=== PATIENT | male | born 1945 | race Caucasian/White ===

== ENCOUNTER → 2023-01-27 | Outpatient (REF) ==
[2023-01-27 12:47] LABS: HEMATOCRIT 35.6 % (42.0-52.0); MEAN CORPUSCULAR HEMOGLOBIN 24.8 pg (27.0-33.0); MEAN CORPUSCULAR HGB CONC 30.9 g/dl (32.0-36.5); MEAN CORPUSCULAR VOLUME 80.2 fl (80.0-96.0); PLATELET COUNT, AUTOMATED 229 10^3/uL (150-450); RED BLOOD COUNT 4.44 10^6/uL (4.30-6.10); WHITE BLOOD COUNT 10.4 10^3/uL (4.0-10.0)
[2023-01-27 13:36] LABS: HEMOGLOBIN A1c 7.3 % (4.0-6.0)
[2023-01-27 13:59] LABS: BLOOD UREA NITROGEN 23 MG/DL (9-23); CALCIUM LEVEL 8.7 MG/DL (8.3-10.6); CARBON DIOXIDE LEVEL 28 MMOL/L (20-31); CHLORIDE LEVEL 103 MMOL/L (98-107); CREATININE FOR GFR 0.92 MG/DL (0.70-1.30); GLOMERULAR FILTRATION RATE > 60.0 (>42); GLUCOSE, FASTING 147 MG/DL (74-106); POTASSIUM SERUM 3.8 MMOL/L (3.5-5.1); SODIUM LEVEL 140 MMOL/L (136-145)
[2023-01-27 14:46] LABS: CREATININE, URINE 184.2 MG/DL
[2023-01-27 14:47] LABS: MAU/CREAT RATIO 20.6 MCG/MG (0.0-30.0)
== END ==
PROVIDERS: ATTEND Internal Medicine
DX: I10 Essential (primary) hypertension (principal)

== ENCOUNTER → 2023-02-01 | Outpatient (REF) ==
[2023-02-01 11:11] LABS: HEMATOCRIT 35.9 % (42.0-52.0); MEAN CORPUSCULAR HEMOGLOBIN 24.8 pg (27.0-33.0); MEAN CORPUSCULAR HGB CONC 30.6 g/dl (32.0-36.5); MEAN CORPUSCULAR VOLUME 80.9 fl (80.0-96.0); PLATELET COUNT, AUTOMATED 189 10^3/uL (150-450); RED BLOOD COUNT 4.44 10^6/uL (4.30-6.10); WHITE BLOOD COUNT 8.7 10^3/uL (4.0-10.0)
[2023-02-01 11:30] LABS: BLOOD UREA NITROGEN 26 MG/DL (9-23); CALCIUM LEVEL 8.4 MG/DL (8.3-10.6); CARBON DIOXIDE LEVEL 26 MMOL/L (20-31); CHLORIDE LEVEL 103 MMOL/L (98-107); CREATININE FOR GFR 0.81 MG/DL (0.70-1.30); GLOMERULAR FILTRATION RATE > 60.0 (>42); GLUCOSE, FASTING 150 MG/DL (74-106); POTASSIUM SERUM 4.3 MMOL/L (3.5-5.1); SODIUM LEVEL 139 MMOL/L (136-145)
[2023-02-01 11:35] LABS: URIC ACID 4.9 MG/DL (3.7-9.2)
[2023-02-01 11:37] LABS: ERYTHROCYTE SEDIMENTATION RATE 81 mm/hr (0-20)
== END ==
PROVIDERS: ATTEND Physician Assistant
DX: M10.9 Gout, unspecified (principal)

== ENCOUNTER → 2023-02-03 | Outpatient (REF) ==
[2023-02-03 10:28] LABS: HEMATOCRIT 38.7 % (42.0-52.0); HEMOGLOBIN 11.7 g/dl (13.5-17.5); MEAN CORPUSCULAR HEMOGLOBIN 24.6 pg (27.0-33.0); MEAN CORPUSCULAR HGB CONC 30.2 g/dl (32.0-36.5); MEAN CORPUSCULAR VOLUME 81.3 fl (80.0-96.0); PLATELET COUNT, AUTOMATED 251 10^3/uL (150-450); RED BLOOD COUNT 4.76 10^6/uL (4.30-6.10); WHITE BLOOD COUNT 11.6 10^3/uL (4.0-10.0)
[2023-02-03 11:46] LABS: BLOOD UREA NITROGEN 27 MG/DL (9-23); CARBON DIOXIDE LEVEL 27 MMOL/L (20-31); CHLORIDE LEVEL 101 MMOL/L (98-107); CREATININE FOR GFR 0.89 MG/DL (0.70-1.30); GLOMERULAR FILTRATION RATE > 60.0 (>42); GLUCOSE, FASTING 190 MG/DL (74-106); SODIUM LEVEL 140 MMOL/L (136-145)
== END ==
PROVIDERS: ATTEND Physician Assistant
DX: I10 Essential (primary) hypertension (principal)

== ENCOUNTER → 2023-02-04 | Outpatient (REF) | payer MEDICARE | PROVIDERS: ATTEND Physician Assistant | DX: M10.9 Gout, unspecified (principal); Z53.8 Procedure and treatment not carried out for other reasons ==

== ENCOUNTER 2023-02-08 19:08 | Emergency (ER) | payer MEDICARE ==
[~2023-02-08] VITALS: Ht 167.6 cm; Wt 80.0 kg
[2023-02-08] MEDS ORDERED: ACETAMINOPHEN TAB 650MG DOSE (2X325MG) PO ONE (20:15)
[2023-02-08 20:36] LABS: BASO % 0.2 % (0.0-1.0); EOS % 0.2 % (0.0-3.0); HEMATOCRIT 36.1 % (42.0-52.0); HEMOGLOBIN 11.3 g/dl (13.5-17.5); LYMPH # 1.4 10^3/uL (1.5-5.0); LYMPH % 11.7 % (24.0-44.0); MEAN CORPUSCULAR HGB CONC 31.3 g/dl (32.0-36.5); MEAN CORPUSCULAR VOLUME 79.9 fl (80.0-96.0); MONO # 1.3 10^3/uL (0.0-0.8); MONO % 10.8 % (2.0-8.0); NEUTROPHILS # 9.2 10^3/uL (1.5-8.5); NEUTROPHILS % 75.4 % (36.0-66.0); PLATELET COUNT, AUTOMATED 152 10^3/uL (150-450); RED BLOOD COUNT 4.52 10^6/uL (4.30-6.10); WHITE BLOOD COUNT 12.2 10^3/uL (4.0-10.0)
[2023-02-08 20:55] LABS: LIPASE 35 U/L (12-53)
[2023-02-08 20:56] LABS: CK-MB VALUE MASS < 1.0 NG/ML (<3.6)
[2023-02-08 20:58] LABS: ALBUMIN 2.8 G/DL (3.2-5.2); ALKALINE PHOSPHATASE 50 U/L (46-116); ALT/SGPT 65 U/L (7.0-40); AST/SGOT 19 U/L (<34); BILIRUBIN,DIRECT 0.5 MG/DL (<0.4); BILIRUBIN,TOTAL 1.2 MG/DL (0.3-1.2); BLOOD UREA NITROGEN 37 MG/DL (9-23); CALCIUM LEVEL 8.6 MG/DL (8.3-10.6); CARBON DIOXIDE LEVEL 27 MMOL/L (20-31); CHLORIDE LEVEL 101 MMOL/L (98-107); CPK CREATINE PHOSPHOKINASE < 15 U/L (46-171); GLOMERULAR FILTRATION RATE > 60.0 (>42); GLUCOSE, FASTING 193 MG/DL (74-106); POTASSIUM SERUM 3.9 MMOL/L (3.5-5.1); SODIUM LEVEL 136 MMOL/L (136-145); TOTAL PROTEIN 6.1 G/DL (5.7-8.2)
[2023-02-08 21:59] LABS: CK-MB VALUE MASS < 1.0 NG/ML (<3.6)
[2023-02-08 22:00] LABS: CPK CREATINE PHOSPHOKINASE < 15 U/L (46-171)
[2023-02-08] MEDS ORDERED: NS 1,000 ML IV ONE (22:05)
[2023-02-08 22:44] VITALS: BP 132/62
== END 2023-02-08 23:30 | disposition home or self-care (01) ==
LOC: M ED 19:08 → EDBD 19:08 → M ED 23:30
DX: R41.82 Altered mental status, unspecified (principal); R50.9 Fever, unspecified; R39.11 Hesitancy of micturition; W06.XXXA Fall from bed, initial encounter; Y92.122 Bedroom in nursing home as the place of occurrence of the external cause

== ENCOUNTER → 2023-02-10 | Outpatient (REF) | payer MEDICARE ==
[2023-02-10 12:17] LABS: URIC ACID 2.9 MG/DL (3.7-9.2)
[2023-02-10 12:19] LABS: BLOOD UREA NITROGEN 23 MG/DL (9-23); CALCIUM LEVEL 8.5 MG/DL (8.3-10.6); CARBON DIOXIDE LEVEL 26 MMOL/L (20-31); CHLORIDE LEVEL 103 MMOL/L (98-107); CREATININE FOR GFR 0.79 MG/DL (0.70-1.30); GLOMERULAR FILTRATION RATE > 60.0 (>42); GLUCOSE, FASTING 184 MG/DL (74-106); POTASSIUM SERUM 3.7 MMOL/L (3.5-5.1); SODIUM LEVEL 138 MMOL/L (136-145)
== END ==
PROVIDERS: ATTEND Physician Assistant
DX: M10.9 Gout, unspecified (principal)

== ENCOUNTER → 2023-02-23 | Outpatient (REF) | payer MEDICARE ==
[2023-02-23 11:23] LABS: HEMOGLOBIN 11.4 g/dl (13.5-17.5); MEAN CORPUSCULAR HEMOGLOBIN 24.7 pg (27.0-33.0); MEAN CORPUSCULAR HGB CONC 30.8 g/dl (32.0-36.5); MEAN CORPUSCULAR VOLUME 80.3 fl (80.0-96.0); PLATELET COUNT, AUTOMATED 221 10^3/uL (150-450); RED BLOOD COUNT 4.61 10^6/uL (4.30-6.10); WHITE BLOOD COUNT 9.5 10^3/uL (4.0-10.0)
[2023-02-23 11:44] LABS: BLOOD UREA NITROGEN 25 MG/DL (9-23); CALCIUM LEVEL 8.6 MG/DL (8.3-10.6); CARBON DIOXIDE LEVEL 26 MMOL/L (20-31); CHLORIDE LEVEL 102 MMOL/L (98-107); CREATININE FOR GFR 1.06 MG/DL (0.70-1.30); GLOMERULAR FILTRATION RATE > 60.0 (>42); GLUCOSE, FASTING 146 MG/DL (74-106); POTASSIUM SERUM 4.6 MMOL/L (3.5-5.1); SODIUM LEVEL 138 MMOL/L (136-145)
== END ==
PROVIDERS: ATTEND Physician Assistant
DX: R53.83 Other fatigue (principal)

== ENCOUNTER → 2023-02-28 | Outpatient (REF) | payer MEDICARE ==
[2023-03-01 12:38] LABS: APPEARANCE, URINE HAZY (CLEAR); BACTERIA, URINE AUTO NEGATIVE (NEGATIVE); BILIRUBIN, URINE AUTO NEGATIVE (NEGATIVE); BLOOD, URINE BLOOD NEGATIVE (NEGATIVE); COLOR, URINE YELLOW (YELLOW); GLUCOSE, URINE (UA) AUTO NEGATIVE (NEGATIVE); KETONE, URINE AUTO NEGATIVE (NEGATIVE); LEUKOCYTE ESTERASE, URINE AUTO NEGATIVE (NEGATIVE); MUCUS, URINE SMALL (NEGATIVE); NITRITE, URINE AUTO NEGATIVE (NEGATIVE); PROTEIN, URINE AUTO NEGATIVE (NEGATIVE); RBC, URINE AUTO 0 /HPF (0-3); SQUAMOUS EPITHELIAL CELL UR AU 0 /HPF (0-6); UROBILINOGEN, URINE AUTO 0.2 mg/dL (0.0-2.0); WBC, URINE AUTO 6 /HPF (0-3)
== END ==
PROVIDERS: ATTEND Internal Medicine
DX: R53.1 Weakness (principal)

== ENCOUNTER → 2023-03-01 | Outpatient (REF) | payer MEDICARE ==
[2023-03-01 10:13] LABS: HEMATOCRIT 35.4 % (42.0-52.0); HEMOGLOBIN 10.8 g/dl (13.5-17.5); MEAN CORPUSCULAR HEMOGLOBIN 24.4 pg (27.0-33.0); MEAN CORPUSCULAR HGB CONC 30.5 g/dl (32.0-36.5); MEAN CORPUSCULAR VOLUME 80.1 fl (80.0-96.0); PLATELET COUNT, AUTOMATED 265 10^3/uL (150-450); RED BLOOD COUNT 4.42 10^6/uL (4.30-6.10); WHITE BLOOD COUNT 8.8 10^3/uL (4.0-10.0)
[2023-03-01 11:44] LABS: ALBUMIN 2.8 G/DL (3.2-5.2); ALKALINE PHOSPHATASE 73 U/L (46-116); ALT/SGPT 27 U/L (7.0-40); AST/SGOT 20 U/L (<34); BILIRUBIN,TOTAL 0.3 MG/DL (0.3-1.2); BLOOD UREA NITROGEN 29 MG/DL (9-23); CALCIUM LEVEL 8.8 MG/DL (8.3-10.6); CARBON DIOXIDE LEVEL 25 MMOL/L (20-31); CHLORIDE LEVEL 106 MMOL/L (98-107); CREATININE FOR GFR 1.06 MG/DL (0.70-1.30); GLOMERULAR FILTRATION RATE > 60.0 (>42); GLUCOSE, FASTING 141 MG/DL (74-106); POTASSIUM SERUM 3.9 MMOL/L (3.5-5.1); SODIUM LEVEL 139 MMOL/L (136-145)
[2023-03-01 18:44] LABS: TOTAL PROTEIN 6.8 G/DL (5.7-8.2)
== END ==
PROVIDERS: ATTEND Internal Medicine
DX: R53.1 Weakness (principal)

== ENCOUNTER → 2023-03-22 | Outpatient (REF) | payer MEDICARE | PROVIDERS: ATTEND Internal Medicine | DX: R19.7 Diarrhea, unspecified (principal) ==

== ENCOUNTER → 2023-04-22 | Outpatient (REF) | payer MEDICARE | PROVIDERS: ATTEND Nurse Practitioner Family | DX: D64.9 Anemia, unspecified (principal) ==

== ENCOUNTER → 2023-04-23 | Outpatient (REF) | payer MEDICARE ==
[2023-04-23 09:16] LABS: HEMATOCRIT 34.7 % (42.0-52.0); HEMOGLOBIN 10.5 g/dl (13.5-17.5); MEAN CORPUSCULAR HEMOGLOBIN 23.8 pg (27.0-33.0); MEAN CORPUSCULAR HGB CONC 30.3 g/dl (32.0-36.5); MEAN CORPUSCULAR VOLUME 78.7 fl (80.0-96.0); PLATELET COUNT, AUTOMATED 264 10^3/uL (150-450); RED BLOOD COUNT 4.41 10^6/uL (4.30-6.10); WHITE BLOOD COUNT 10.3 10^3/uL (4.0-10.0)
[2023-04-23 09:45] LABS: BLOOD UREA NITROGEN 25 MG/DL (9-23); CALCIUM LEVEL 9.2 MG/DL (8.3-10.6); CARBON DIOXIDE LEVEL 29 MMOL/L (20-31); CHLORIDE LEVEL 102 MMOL/L (98-107); CREATININE FOR GFR 1.17 MG/DL (0.70-1.30); GLOMERULAR FILTRATION RATE > 60.0 (>42); GLUCOSE, FASTING 110 MG/DL (74-106); IRON (FE) 33 UG/DL (65-175); SODIUM LEVEL 140 MMOL/L (136-145)
[2023-04-23 09:47] LABS: FERRITIN 221.3 NG/ML (10.5-307.3)
== END ==
PROVIDERS: ATTEND Nurse Practitioner Family
DX: D64.9 Anemia, unspecified (principal)

== ENCOUNTER → 2023-05-06 | Outpatient (CLI) | payer MEDICARE, MEDICAID | LOC: M WHC 08:07 | PROVIDERS: ATTEND Nurse Practitioner Family | DX: R10.11 Right upper quadrant pain (principal) ==

== ENCOUNTER → 2023-05-07 | Outpatient (REF) | payer MEDICARE ==
[2023-05-07 09:59] LABS: BASO % 0.4 % (0.0-1.0); EOS # 0.1 10^3/uL (0.0-0.5); EOS % 1.3 % (0.0-3.0); HEMATOCRIT 32.6 % (42.0-52.0); HEMOGLOBIN 9.8 g/dl (13.5-17.5); MEAN CORPUSCULAR HEMOGLOBIN 23.7 pg (27.0-33.0); MEAN CORPUSCULAR HGB CONC 30.1 g/dl (32.0-36.5); MEAN CORPUSCULAR VOLUME 78.9 fl (80.0-96.0); MONO # 0.8 10^3/uL (0.0-0.8); MONO % 11.2 % (2.0-8.0); NEUTROPHILS # 5.2 10^3/uL (1.5-8.5); NEUTROPHILS % 72.4 % (36.0-66.0); PLATELET COUNT, AUTOMATED 174 10^3/uL (150-450); RED BLOOD COUNT 4.13 10^6/uL (4.30-6.10); WHITE BLOOD COUNT 7.1 10^3/uL (4.0-10.0)
[2023-05-07 10:31] LABS: BLOOD UREA NITROGEN 23 MG/DL (9-23); CALCIUM LEVEL 8.3 MG/DL (8.3-10.6); CARBON DIOXIDE LEVEL 27 MMOL/L (20-31); CHLORIDE LEVEL 103 MMOL/L (98-107); CREATININE FOR GFR 0.94 MG/DL (0.70-1.30); GLOMERULAR FILTRATION RATE > 60.0 (>42); GLUCOSE, FASTING 124 MG/DL (74-106); POTASSIUM SERUM 3.7 MMOL/L (3.5-5.1); SODIUM LEVEL 139 MMOL/L (136-145)
[2023-05-07 11:02] LABS: ALBUMIN 2.7 G/DL (3.2-5.2); ALKALINE PHOSPHATASE 78 U/L (46-116); ALT/SGPT 28 U/L (7.0-40); AST/SGOT 17 U/L (<34); BILIRUBIN,DIRECT 0.2 MG/DL (<0.4); BILIRUBIN,TOTAL 0.5 MG/DL (0.3-1.2); TOTAL PROTEIN 6.5 G/DL (5.7-8.2)
== END ==
PROVIDERS: ATTEND Internal Medicine
DX: R52 Pain, unspecified (principal); Z79.899 Other long term (current) drug therapy

== ENCOUNTER → 2023-05-08 | Outpatient (REF) | payer MEDICARE | PROVIDERS: ATTEND Internal Medicine | DX: I10 Essential (primary) hypertension (principal); Z53.8 Procedure and treatment not carried out for other reasons ==